=== PATIENT | female | born 1980 | race Two or more races ===

== ENCOUNTER → 2024-09-02 | Outpatient (CLI) | payer MEDICAID, SELFPAY ==
--- NOTE | 2024-09-02 | XR_ITS ---
Examination: Hand, left 3 views Technique: Hand AP, oblique, lateral 3 views Date and time of exam: September 02, 2024 1254 hours INDICATIONS: Hand pain in the fourth digit beginning 3 months ago FINDINGS: Moderate osteopenia No fracture or dislocation Mild osteoarthritis interphalangeal joints No opaque foreign body IMPRESSION: No fracture or dislocation
--- NOTE | 2024-09-02 | XR_ITS ---
Examination: Wrist, left 3 views Technique: Wrist AP, oblique, lateral 3 views Date and time of exam: September 02, 2024 1254 hours INDICATIONS: Wrist pain beginning 3 months ago FINDINGS: Moderate osteopenia. No fracture or dislocation No avascular necrosis IMPRESSION: No fracture or dislocation
== END | disposition home or self-care (01) ==
LOC: CDIM 11:31
PROVIDERS: PCP Physician Assistant; Referring Provider Nurse Practitioner Gerontology; Visit Provider Nurse Practitioner Gerontology
DX: M79.642 Pain in left hand (principal); M25.532 Pain in left wrist
CPT/HCPCS: 73110; 73130

== ENCOUNTER → 2025-03-19 | Outpatient (CLI) | payer MEDICAID, SELFPAY ==
--- NOTE | 2025-03-19 15:05 | XR_ITS ---
Examination: Hand, left 3 views Technique: Hand AP, oblique, lateral 3 views Date and time of exam: March 19, 2025 1503 hours INDICATIONS: Left hand pain 2 weeks. FINDINGS: Moderate juxta-articular bone demineralization. No fracture or dislocation. No erosive or other significant arthritic change IMPRESSION: No fracture or dislocation No erosive or other significant arthritic change
--- NOTE | 2025-03-19 15:05 | XR_ITS ---
Examination: Wrist, left 3 views Technique: Wrist AP, oblique, lateral 3 views Date and time of exam: March 19, 2025 1507 hours INDICATIONS: Left breast pain 2 weeks. FINDINGS: Moderate osteopenia. No fracture or dislocation. No avascular necrosis. No erosive or other significant arthritic change IMPRESSION: No erosive or other significant arthritic change
== END | disposition home or self-care (01) ==
LOC: CDIM 14:51
PROVIDERS: PCP Physician Assistant; Referring Provider Nurse Practitioner Gerontology; Visit Provider Nurse Practitioner Gerontology
DX: M25.532 Pain in left wrist (principal); M79.642 Pain in left hand
CPT/HCPCS: 73110; 73130